=== PATIENT | male | born 1970 | race Caucasian/White ===

== ENCOUNTER 2022-01-06 11:29 | Outpatient (CLI) | payer BC ==
[2022-01-06 23:37] LABS: SARS-CoV-2 PCR by NAA Not Detected (NotDetected)
== END 2022-01-06 11:30 | disposition home or self-care (01) ==
LOC: CSHLAB 11:29
PROVIDERS: ATTEND Internal Medicine Gastroenterology
DX: Z20.822 Contact with and (suspected) exposure to COVID-19 (principal)
CPT/HCPCS: U0003; U0005

== ENCOUNTER 2022-01-09 08:34 | Outpatient (CLI) | payer BC | END 2022-01-09 08:35 | disposition home or self-care (01) | LOC: CSHRAD 08:34 | PROVIDERS: ATTEND Internal Medicine Gastroenterology | DX: K21.9 Gastro-esophageal reflux disease without esophagitis (principal); Z98.84 Bariatric surgery status; R13.10 Dysphagia, unspecified; R11.10 Vomiting, unspecified; K95.89 Other complications of other bariatric procedure | CPT/HCPCS: 74220 ==